=== PATIENT | male | born 1990 | race Caucasian/White ===

== ENCOUNTER → 2017-11-01 16:41 | Outpatient (CLI) | payer MEDICAID, SELFPAY | PROVIDERS: Visit Provider Obstetrics & Gynecology ==

== ENCOUNTER 2020-04-01 09:33 | Emergency (ER) | payer MEDICAID, SELFPAY ==
[2020-04-01 09:44] VITALS: BP 116/70; PULSE 63; RESP 17; O2SAT 98
--- NOTE | 2020-04-01 09:55 | HMH.EDUTC ---
[facility] Clinical Impression: Acute bronchitis Qualifiers: Bronchitis organism: unspecified organism Qualified Code(s): J20.9 - Acute bronchitis, unspecified Sinusitis Qualifiers: Sinusitis location: unspecified location Chronicity: acute Recurrence: non-recurrent Qualified Code(s): J01.90 - Acute sinusitis, unspecified Disposition: Home, Self-Care Condition on Discharge: Good Instructions: Sinusitis, DI for Sinusitis Additional Instructions: Drink plenty of fluids. Take tylenol or ibuprofen for pain or fever. Take the medications as directed. Follow up with your regular doctor. GO TO THE ER FOR ANY WORSENING SYMPTOMS Prescriptions: Brompheniramine/Pseudoephed/Dm [Bromfed Dm Cough Syrup] 5 ml PO Q6HP PRN #240 syrup PRN Reason: Cough Transmission Status: Received by [facility] # Azithromycin [Z-Curtis 250mg Tab*] 250 mg PO UD DOSE PK #6 tab Transmission Status: Received by [facility] # Referrals: Ramila Sen APRN [Primary Care Provider] - Time of Disposition: 09:57 Medical Decision Making - Medical Records Medical records reviewed: No: I reviewed the patient's medical records. - Gaston Inquiry Pt receiving controlled substance: No Vital Signs: 04/01/20 09:44 04/01/20 10:12 Temperature 98.0 F Temperature Source Oral Pulse Rate 63 Pulse Rate [Radial] 63 Respiratory Rate 17 17 Blood Pressure 116/70 Blood Pressure [Right Arm] 116/70 Blood Pressure Mean [Right Arm] 85 Blood Pressure Source Automatic Cuff Blood Pressure Source [Right Arm] Automatic Cuff Blood Pressure Position Sitting Blood Pressure Position [Right Arm] Sitting 02 Sat by Pulse Oximetry 98 Oxygen Delivery Method Room Air Room Air [facility] [place] [place] - General Stated complaint: possible bronchitis Time Seen by Provider: 04/01/20 09:45 Mode of Arrival: Ambulatory Source of Information: Patient Limitations: No Limitations Description of Symptoms (Recalled from Triage Doc. by RN): possible bronchitis HEENT Symptoms (Recalled from RN notes): Yes Resp Symptoms (Recalled from RN notes): No Skin Symptoms (Recalled from RN notes): No MS Symptoms (Recalled from RN notes): No Functional Status (Recalled from RN notes): wnl - History of Present Illness Provider Complaint: He c/o having sinus pressure, head ache, sinus drainage and cough for the past 2 days. He denies any exposure to COVID-19. - Related Data Previous Rx's Medication Instructions Recorded Meloxicam [Mobic 7.5mg Tab] 7.5 mg PO DAILY #14 tab 07/31/18 prednisone 20 mg tablet 20 mg PO BID 5 Days #10 tab 08/02/18 Azithromycin [Z-Curtis 250mg Tab*] 250 mg PO UD DOSE PK #6 tab 04/01/20 Brompheniramine/Pseudoephed/Dm 5 ml PO Q6HP PRN #240 syrup 04/01/20 [Bromfed Dm Cough Syrup] Allergies Allergy/AdvReac Type Severity Reaction Status Date / Time No Known Allergies Allergy Verified 08/02/18 13:05 - Worker's Comp Is this a Worker's Comp case?: No [facility] History - Hepatitis A Screen Drug use history?: No High risk sexual behaviors?: No History of sexually transmitted infection?: No Currently employed?: No Childcare worker?: No Do you have indoor plumbing?: Yes Do you have electricity?: Yes Attestation statement:: This patient has been screened for Hepatitis A risk factors. I have reviewed the patient's past medical history: Yes Medical History: Denies:: Cancer, Diabetes Mellitus Type 1, Diabetes Mellitus Type 2, MRSA Other Surgeries: Yes: No Previous Surgery Amputation: No Fractures: No - Social History Smoking Status: Current some day smoker Tobacco Type: cigarettes Alcohol Intake: never Alcohol Intake Frequency:: a few times a month Substance Use Type: marijuana Occupational Status: other Housing: house ROS Obtained: Yes All systems reviewed & no additional complaints - Constitutional Constitutional: Reports chills, Denies fever(s), Reports poor appetite, Reports malaise - Eyes Eyes: De
[2020-04-01 10:12] VITALS: BP 116/70; PULSE 63; RESP 17; TEMP 36.7; O2SAT 98
== END 2020-04-01 10:13 | disposition home or self-care (01) ==
PROVIDERS: Emergency Provider Nurse Practitioner Family; PCP Nurse Practitioner Family
DX: J20.9 Acute bronchitis, unspecified (principal); J01.90 Acute sinusitis, unspecified; F17.210 Nicotine dependence, cigarettes, uncomplicated
CPT/HCPCS: 99201

== ENCOUNTER 2022-06-10 14:44 | Emergency (ER) | payer MEDICAID, SELFPAY ==
[2022-06-10 15:45] VITALS: BMI 20.6
--- NOTE | 2022-06-10 15:47 | CT_ITS ---
PROCEDURE INFORMATION: Exam: CT Abdomen And Pelvis With Contrast Exam date and time: 06/10/2022 3:53 PM Age: 32 years old Clinical indication: Abdominal pain; Localized; Right lower quadrant (rlq); Patient HX: Rlq pain since Wednesday, worsened today. Nkt, 0 other complaints; Additional info: R lower quad pain TECHNIQUE: Imaging protocol: Computed tomography of the abdomen and pelvis with contrast. Radiation optimization: All CT scans at this facility use at least one of these dose optimization techniques: automated exposure control; mA and/or kV adjustment per patient size (includes targeted exams where dose is matched to clinical indication); or iterative reconstruction. Contrast material: ISOVUE; Contrast volume: 70 ml; Contrast route: IV; COMPARISON: No relevant prior studies available. FINDINGS: Lungs: Lung bases are clear. Liver: Normal. No mass. Gallbladder and bile ducts: Normal. No calcified stones. No ductal dilation. Pancreas: Unremarkable. Main pancreatic duct is not significantly dilated. Spleen: Normal. No splenomegaly. Adrenal glands: Normal. No mass. Kidneys and ureters: Kidneys are unremarkable. No calculi or hydronephrosis detected. Stomach and bowel: Unremarkable. No obstruction. No mucosal thickening. Appendix: Appendix is adequately seen and unremarkable. No evidence of acute appendicitis. Intraperitoneal space: Unremarkable. No free air. No significant fluid collection. Vasculature: Unremarkable. No abdominal aortic aneurysm. Lymph nodes: Unremarkable. No enlarged lymph nodes. Urinary bladder: Unremarkable as visualized. Reproductive: Unremarkable as visualized. Bones/joints: Unremarkable. No acute fracture. Soft tissues: Unremarkable. IMPRESSION: No acute findings within the abdomen or pelvis.
[2022-06-10 15:49] VITALS: BP 151/87; PULSE 59; RESP 20; TEMP 36.8; O2SAT 98; BMI 20.6
[2022-06-10 16:00] LABS: Basophils # 0.1 K/mm3 (0-0.2); Basophils % 0.9 % (0.1-2.0); Eosinophils # 0.3 K/mm3 (0.0-0.4); Eosinophils % 4.4 % (0.1-12.0); Hematocrit 51.6 % (42.0-52.0); Hemoglobin 16.9 g/dL (14.1-18.0); Lymphocytes % 25.3 % (10-50); Mean Corpuscular HGB Conc 32.8 g/dL (31.8-35.4); Mean Corpuscular Hemoglobin 31.1 pg (27.0-31.2); Mean Corpuscular Volume 94.7 fl (80-94); Mean Platelet Volume 9.1 fl (7.4-10.4); Monocytes # 0.3 K/mm3 (0.1-1.0); Monocytes % 3.9 % (1.7-9.3); Neutrophils # 5.1 K/mm3 (1.8-7.8); Neutrophils % 65.5 % (37.0-80.0); Platelet Count 283 K/mm3 (142-424); Red Blood Count 5.45 M/mm3 (4.60-6.20); Red Cell Distribution Width 12.5 % (11.5-17.5); White Blood Count 7.8 K/mm3 (4.8-10.8)
[2022-06-10 16:12] LABS: Microscopic, Urine URINE MICROSCOPIC (MICROSCOPIC)
[2022-06-10 16:15] LABS: Alanine Aminotransferase 22 U/L (12-78); Albumin/Globulin Ratio 1.7 (1.1-1.8); Alkaline Phosphatase 78 U/L (38-126); Anion Gap 9.7 mEq/L (5-15); Aspartate Amino Transferase 27 U/L (17-59); Bilirubin,Total 0.5 mg/dl (0.2-1.3); Blood Urea Nitrogen 6 mg/dl (9-20); Calcium 10.2 mg/dl (8.4-10.2); Carbon Dioxide 29 mmol/L (22.0-30.0); Chloride 104 mmol/L (98-107); Creatinine Clearance Estimated 125 mL/min (50-200); Estimated Glomerular Filt Rate 98 ml/min (>60); GFR (African American) 118 ML/MIN (>60); Globulin 2.9 g/dL (1.3-3.2); Glucose 99 mg/dl (74-100); Lipase 67 U/L (23-300); Potassium 3.7 mmoL/L (3.5-5.1); Sodium 139 mmol/L (136-145); Total Protein,Serum 7.9 g/dl (6.3-8.2)
[2022-06-10 16:24] LABS: Appearance,Urine CLEAR (Clear); Bilirubin,Urine Negative (Negative); Blood, Urine Negative (Negative); Color,Urine YELLOW (Yellow); Glucose,Urine (UA) Negative (Negative); Ketones,Urine Negative (Negative); Leukocyte Esterase,Urine Negative (Negative); Nitrate,Urine Negative (Negative); Protein,Urine Negative (Negative); Urobilinogen,Urine 0.2 EU/dl (0.2)
[2022-06-10 16:30] VITALS: BP 106/50; PULSE 62; O2SAT 99
[2022-06-10 17:01] VITALS: BP 117/65; PULSE 54; O2SAT 99
[2022-06-10 17:30] VITALS: BP 124/65; PULSE 52; O2SAT 95
--- NOTE | 2022-06-10 17:30 | HMH.EDGENADL ---
Discharge Plan Disposition Patient Disposition: Home, Self-Care Condition: Good Chief Complaint: PAIN Prescriptions Prescriptions: No Action prednisone 20 mg tablet 20 mg PO BID 5 Days Qty: 10 0RF meloxicam 7.5 MG tablet 7.5 mg PO DAILY Qty: 14 0RF azithromycin 250 MG tablet 250 mg PO UD DOSE PK Qty: 6 0RF Rx Instructions: Take two (2) tablets today, then one (1) tablet days #2 thru #5 uxcsedbgskjeftq-prwrphzni-TX 118 ML syrup 5 ml PO Q6HP PRN (Reason: Cough) Qty: 240 0RF Referrals Follow up/Referrals: Ramila Sen APRN [Primary Care Provider] - See instructions Activity Restrictions/Add. Instructions Additional Instructions/Restrictions: Ibuprofen as needed for pain. Additional instructions for ABDOMINAL PAIN: See your physician as soon as possible for further evaluation. Return immediately if worsening abdominal pain, vomiting, shortness of breath, fever, vomiting of blood or abdominal distention. Clinical Impressions Clinical Impression: Abdominal pain, right lower quadrant Instructions Patient Instructions: DI for Abdominal Pain-Adult Discharge ED Provider: Antione Antonio General Adult HPI General Chief complaint: PAIN Stated complaint: RT abd pain, nausea Time Seen by Provider: 06/10/22 17:24 Mode of Arrival: Ambulatory Source of Information: Patient Limitations: No Limitations Description of Symptoms (Recalled from ER Triage Doc. by RN): pt to ed c/o RLQ pain x2 days, urinary frequency and burning with urination. pt denies visible blood in urine. History of Present Illness HPI narrative: Complains of right lower quadrant pain for the past couple of days. Describes it as a numbing sensation but says that it feels like it is deep inside. Sometimes he has to change positions when the pain gets worse. He says sometimes it seems to go around to his lower back as well. Denies vomiting, diarrhea, fever, urinary symptoms. States he has had a similar pain once over a year ago and it did seem to go away on its own. He has been doing some increased physical activity, moving recently. Related Data Previous Rx's Medication Instructions Recorded meloxicam 7.5 mg tablet 7.5 mg PO DAILY #14 tabs 07/31/18 prednisone 20 mg tablet 20 mg PO BID 5 days #10 tabs 08/02/18 azithromycin 250 mg tablet 250 mg PO UD DOSE PK #6 tabs 04/01/20 nydfvhzkrwfinbq-qljageqhmtvuibx-QU 5 ml PO Q6HP PRN Cough ##240 04/01/20 2 mg-30 mg-10 mg/5 mL oral syrup Allergies Allergy/AdvReac Type Severity Reaction Status Date / Time No Known Allergies Allergy Verified 08/02/18 13:05 [facility] Disclaimer: The information contained in this section may have been updated after the patient was seen, as this information can be updated by other users. Social History Smoking Status: Never smoker second hand exposure: No alcohol intake: never substance use type: marijuana current occupational status: other Travel in the last 8 weeks: None housing: house ROS Obtained: Yes Systems reviewed as appropriate & no additional complaints except as documented Constitutional Constitutional: Denies fever(s) Cardiovascular Cardiovascular: Denies chest pain Gastrointestinal Gastrointestingal: Reports abdominal pain; Denies constipation, diarrhea, nausea or vomiting Genitourinary Male Genitourinary: Denies difficulty urinating Musculoskeletal Musculoskeletal: Reports back pain Physical Exam General General appearance: alert and in no apparent distress Head Head exam: atraumatic and normocephalic Eye Eye exam: Present normal appearance and EOMI ENT ENT exam: Present mucous membranes moist Neck Neck exam: Present normal inspection and trachea midline Chest Chest inspection: Present normal inspection and symmetric chest wall rise Respiratory Respiratory exam: Absent respiratory distress Cardiovascular Cardiovascular exam: Present regular rate, normal rhythm and normal heart sound
[2022-06-10 17:53] VITALS: BP 124/65; PULSE 65; RESP 20; TEMP 36.8; O2SAT 97
== END 2022-06-10 17:56 | disposition home or self-care (01) ==
PROVIDERS: Emergency Provider Emergency Medicine; PCP Nurse Practitioner Family
DX: R10.31 Right lower quadrant pain (principal)
CPT/HCPCS: 74177; 80053; 81001; 83690; 85025; 96374; 99284; Q9967

== ENCOUNTER 2022-12-17 12:43 | Emergency (ER) | payer MEDICAID, SELFPAY ==
[2022-12-17 12:43] VITALS: BP 116/83; PULSE 58; RESP 18; TEMP 36.6; O2SAT 99
--- NOTE | 2022-12-17 12:53 | EXP.UTC ---
Discharge Plan Disposition Patient Disposition: Home, Self-Care Condition: Good Prescriptions Prescriptions: New azithromycin [Zithromax] 250 mg tablet 250 mg PO UD DOSE PK Qty: 6 0RF Rx Instructions: Take two (2) tablets today, then one (1) tablet days #2 thru #5 woouecrntwpsswd-hsfvcdxhm-EU [Bromfed DM] 2-30-10 mg/5 mL Syrup 5 ml PO Q6H PRN (Reason: Cough) Qty: 240 0RF No Action prednisone 20 mg tablet 20 mg PO BID 5 Days Qty: 10 0RF meloxicam 7.5 MG tablet 7.5 mg PO DAILY Qty: 14 0RF azithromycin 250 MG tablet 250 mg PO UD DOSE PK Qty: 6 0RF Rx Instructions: Take two (2) tablets today, then one (1) tablet days #2 thru #5 eajjytftzspuhez-razqsqbds-NS 118 ML syrup 5 ml PO Q6HP PRN (Reason: Cough) Qty: 240 0RF Referrals Follow up/Referrals: Provider,Referral, MD [Primary Care Provider] - See instructions Activity Restrictions/Add. Instructions Additional Instructions/Restrictions: Drink plenty of fluids. Take tylenol or ibuprofen for pain or fever. Take the medications as directed. Follow up with your regular doctor. GO TO THE ER FOR ANY WORSENING SYMPTOMS Clinical Impressions Clinical Impression: Otitis media Instructions Patient Instructions: Middle Ear Infection Discharge ED Provider: Evans Watt [facility] [place] HPI General Stated complaint: Lightheaded, RT ear pain Time Seen by Provider: 12/17/22 12:53 History of Present Illness Provider Complaint: He states that for the past 2 days he has had left ear pain, dizziness and sinus congestion. Related Data Previous Rx's Medication Instructions Recorded meloxicam 7.5 mg tablet 7.5 mg PO DAILY #14 tabs 07/31/18 prednisone 20 mg tablet 20 mg PO BID 5 days #10 tabs 08/02/18 azithromycin 250 mg tablet 250 mg PO UD DOSE PK #6 tabs 04/01/20 pbhpzfuwfmbpfur-esgkvdyvdztcoea-GU 5 ml PO Q6HP PRN Cough ##240 04/01/20 2 mg-30 mg-10 mg/5 mL oral syrup azithromycin 250 mg tablet 250 mg PO UD DOSE PK #6 tabs 12/17/22 (Zithromax) jouqauplxiilrhb-gsumuppagbgfoks-DJ 5 ml PO Q6H PRN Cough #240 mL 12/17/22 2 mg-30 mg-10 mg/5 mL oral syrup (Bromfed DM) Allergies Allergy/AdvReac Type Severity Reaction Status Date / Time No Known Allergies Allergy Verified 08/02/18 13:05 [facility] Disclaimer: The information contained in this section may have been updated after the patient was seen, as this information can be updated by other users. Social History Smoking Status: Never smoker second hand exposure: No alcohol intake: never substance use type: marijuana current occupational status: other Travel in the last 8 weeks: None housing: house ROS Obtained: Yes All systems reviewed & no additional complaints except as documented Constitutional Constitutional: Denies chills, Reports fever(s) and Reports poor appetite Eyes Eyes: Denies eye discharge ENT Ears, Nose, Mouth, and Throat: Denies ear discharge, Reports otalgia, Denies hearing loss, Denies sinus pain and Reports sore throat Cardiovascular Cardiovascular: Denies chest pain and Denies dyspnea Respiratory Respiratory: Denies chest congestion, Reports cough and Denies dyspnea Gastrointestinal Gastrointestingal: Denies abdominal pain, diarrhea, nausea or vomiting Musculoskeletal Musculoskeletal: Denies arthralgias Integumentary/Breasts Skin/Breast: Denies rash Physical Exam General General appearance: alert and in no apparent distress Head Head exam: atraumatic, normocephalic and normal inspection Eye Eye exam: Present normal appearance; Absent PERRL or EOMI ENT ENT exam: Present mucous membranes moist and normal external ear exam Expanded ENT Exam TM/Canal exam: Bilateral TM: erythema, bulging and effusion Nose exam: Absent sinus tenderness Nasal speculum exam: Bilateral: normal Mouth exam: Present normal external inspection and other; Absent drooling Teeth exam: Present kai
[2022-12-17 13:22] VITALS: BP 116/83; PULSE 58; RESP 18; TEMP 36.6; O2SAT 99
== END 2022-12-17 13:22 | disposition home or self-care (01) ==
PROVIDERS: Emergency Provider Nurse Practitioner Family
DX: H66.93 Otitis media, unspecified, bilateral (principal)
CPT/HCPCS: 99212; 99214; G0463

== ENCOUNTER 2023-01-11 16:41 | Emergency (ER) | payer MEDICAID, SELFPAY ==
[2023-01-11 16:44] VITALS: BP 132/75; PULSE 72; RESP 17; TEMP 36.8; O2SAT 99; BMI 20.6
[2023-01-11 17:00] VITALS: BP 125/68; PULSE 76; RESP 18; O2SAT 100
[2023-01-11 17:30] VITALS: BP 132/75; PULSE 77; RESP 18; O2SAT 99
--- NOTE | 2023-01-11 17:44 | HMH.EDGENADL ---
Discharge Plan Disposition Patient Disposition: Home, Self-Care Prescriptions Prescriptions: No Action No Known Home Medications Referrals Follow up/Referrals: Provider,Referral, MD [Primary Care Provider] - See instructions Activity Restrictions/Add. Instructions Additional Instructions/Restrictions: You have no emergent medical condition or evidence of any type of acute infectious process. Please take Flonase and Sudafed supportively for your symptoms as discussed and return with any high fevers over 101 degrees and any other concerns. Clinical Impressions Clinical Impression: Sinus pressure Discharge ED Provider: Malcolm Loza General Adult HPI General Chief complaint: Ear Stated complaint: AO 2 weeks, lightheaded, dizzy Time Seen by Provider: 01/11/23 17:36 Mode of Arrival: Ambulatory Source of Information: Patient Limitations: No Limitations Description of Symptoms (Recalled from ER Triage Doc. by RN): 32 M presents with continued feelings of being lightheaded and pressure in his head. He was evaluated by our [facility] 2 weeks ago when this originally started. He was diagnosed with vertigo and an inner ear infection. He finished all of his oral abs, but reports this all ramped back up after I was finished taking the medicine. Patient denies fever, chills, or pain in ears. History of Present Illness HPI narrative: Patient is a 32-year-old male here for evaluation of sinus pressure that he has been having for the last 2 weeks. States that he was sleeping in a hammock 2 weeks ago and fell and hit his head and woke up and had some vertigo dizziness type symptoms that day. Went to an urgent treatment clinic and was told he had an inner ear infection was given antibiotics and those symptoms have since resolved. States he still has some pressure in the maxillary area and as well as bilateral ears. Took some Sudafed prior to being evaluated today with some improvement in symptoms. No fevers or chills no significant facial pressure no purulent drainage. He had no bleeding coming from his ears no swelling or ecchymosis behind his ears. States he is very anxious about the symptoms he is currently feeling. Related Data Home Medications Medication Instructions Recorded Confirmed No Known Home Medications 01/11/23 01/11/23 Allergies Allergy/AdvReac Type Severity Reaction Status Date / Time No Known Allergies Allergy Verified 08/02/18 13:05 [facility] Disclaimer: The information contained in this section may have been updated after the patient was seen, as this information can be updated by other users. Social History Smoking Status: Current every day smoker tobacco type: cigarettes second hand exposure: No alcohol intake: never substance use type: marijuana current occupational status: other Travel in the last 8 weeks: None housing: house ROS Obtained: Yes All systems reviewed & no additional complaints except as documented Physical Exam General General appearance: alert ENT ENT exam: Present normal exam, normal oropharynx, TM's normal bilaterally, normal external ear exam and other (No chavez sign or raccoon eyes) Respiratory Respiratory exam: Present normal lung sounds bilaterally Cardiovascular Cardiovascular exam: Present regular rate Neurological Exam Neurological exam: Present alert and oriented X3 Medical Decision Making Gaston Inquiry Pt receiving controlled substance: No Vital Signs: 01/11/23 16:44 01/11/23 17:00 01/11/23 17:30 Temperature 98.2 F Temperature Source Oral Pulse Rate 76 77 Pulse Rate [Left] 72 Respiratory Rate 17 18 18 Blood Pressure 125/68 132/75 Blood Pressure [Right Arm] 132/75 Blood Pressure Mean 87 94 Blood Pressure Mean [Right Arm] 94 Blood Pressure Source [Right Arm] Automatic Cuff Blood Pressure Position [Right Arm] Sitting 02 Sat by Pulse Oximetry 99 100 99 O
[2023-01-11 17:47] VITALS: BP 132/75; PULSE 78; RESP 17; TEMP 36.8; O2SAT 9
== END 2023-01-11 17:49 | disposition home or self-care (01) ==
PROVIDERS: Emergency Provider Student in an Organized Health Care Education/Training Program
DX: J01.90 Acute sinusitis, unspecified (principal); R42 Dizziness and giddiness; F17.210 Nicotine dependence, cigarettes, uncomplicated
CPT/HCPCS: 99283

== ENCOUNTER 2023-01-14 12:45 | Emergency (ER) | payer MEDICAID, SELFPAY ==
[2023-01-14 12:46] VITALS: BP 127/83; PULSE 81; RESP 16; TEMP 36.6; O2SAT 99; BMI 20.6
[2023-01-14 13:04] LABS: Microscopic, Urine URINE MICROSCOPIC (MICROSCOPIC)
[2023-01-14 13:09] LABS: Appearance,Urine CLEAR (Clear); Bilirubin,Urine Negative (Negative); Blood, Urine Negative (Negative); Color,Urine YELLOW (Yellow); Glucose,Urine (UA) Negative (Negative); Ketones,Urine Negative (Negative); Leukocyte Esterase,Urine Negative (Negative); Nitrate,Urine Negative (Negative); PH,Urine 5.5 (5.0-8.5); Protein,Urine Negative (Negative); Specific Gravity, Urine <= 1.005 (1.005-1.030); Urobilinogen,Urine 0.2 EU/dl (0.2)
--- NOTE | 2023-01-14 13:14 | EXP.UTC ---
Discharge Plan Disposition Patient Disposition: Home, Self-Care Condition: Good Prescriptions Prescriptions: New doxycycline hyclate [doxycycline hyclate] 100 mg capsule 100 mg PO Q12 10 Days Qty: 20 0RF Referrals Follow up/Referrals: Provider,Referral, [Primary Care Provider] - See instructions Activity Restrictions/Add. Instructions Additional Instructions/Restrictions: Drink plenty of fluids. Take tylenol or ibuprofen for pain or fever. Take the medications as directed. Follow up with your regular doctor. GO TO THE ER FOR ANY WORSENING SYMPTOMS Clinical Impressions Clinical Impression: UTI (urinary tract infection) Instructions Patient Instructions: DI for Urinary Tract Infection (UTI), Doxycycline Discharge ED Provider: Evans Watt [facility] General Stated complaint: Burning w/ urination Mode of Arrival: Ambulatory Source of Information: Patient Limitations: No Limitations Time Seen by Provider: 01/14/23 13:14 Description of Symptoms (Recalled from Triage Doc. by RN): Patient reports burning when urinating, frequent urination and pressure in his testicles for a couple of days. HEENT Symptoms (Recalled from RN notes): No Resp Symptoms (Recalled from RN notes): No Skin Symptoms (Recalled from RN notes): No MS Symptoms (Recalled from RN notes): No Functional Status (Recalled from RN notes): wnl History of Present Illness Provider Complaint: He states that for the past 2 days he has had dysuria and urinary frequency. He denies fever but has felt like he has had chilling at times, He has had some mild low back pain also. He denies any known std Related Data Previous Rx's Medication Instructions Recorded doxycycline hyclate 100 mg capsule 100 mg PO Q12 10 days #20 caps 01/14/23 Allergies Allergy/AdvReac Type Severity Reaction Status Date / Time No Known Allergies Allergy Verified 08/02/18 13:05 Worker's Comp Is this a Worker's Comp case?: No [facility] Disclaimer: The information contained in this section may have been updated after the patient was seen, as this information can be updated by other users. Social History Smoking Status: Current every day smoker tobacco type: cigarettes second hand exposure: No alcohol intake: never substance use type: marijuana current occupational status: other Travel in the last 8 weeks: None housing: house ROS Obtained: Yes All systems reviewed & no additional complaints except as documented Constitutional Constitutional: Denies chills and Denies fever(s) Eyes Eyes: Denies eye discharge ENT Ears, Nose, Mouth, and Throat: Denies dizziness, Denies otalgia and Denies sore throat Cardiovascular Cardiovascular: Denies chest pain Respiratory Respiratory: Denies shortness of breath, Denies chest congestion, Denies cough, Denies stridor and Denies wheezing Gastrointestinal Gastrointestingal: Denies nausea or vomiting Genitourinary Male Genitourinary: Reports as per HPI Musculoskeletal Musculoskeletal: Reports system reviewed and no additional complaints, except as documented and Denies arthralgias Integumentary/Breasts Skin/Breast: Denies rash Neurologic Neurologic: Denies dizziness and Denies paresthesias Allergic/Immunologic Allergic/Immunologic: Denies wheezing Physical Exam General General appearance: alert and in no apparent distress Head Head exam: atraumatic, normocephalic and normal inspection Eye Eye exam: Present normal appearance, PERRL and EOMI ENT ENT exam: Present normal exam, normal oropharynx, mucous membranes moist, TM's normal bilaterally and normal external ear exam Neck Neck exam: Present normal inspection, full ROM and trachea midline; Absent meningismus or lymphadenopathy Chest Chest inspection: Present normal inspection and symmetric chest wall rise; Absent tenderness Respiratory Respiratory exam: Present normal lung sounds bilaterally; Absent
[2023-01-14 13:17] LABS: Bacteria,Urine Trace /lpf; Squamous Epithelial Cell,Urine Occasional #/hpf (0-5)
[2023-01-14 13:57] VITALS: BP 127/83; PULSE 81; RESP 16; TEMP 36.6; O2SAT 99
[2023-01-18 22:35] LABS: Neisseria gonorrhoeae, NAA Negative (Negative)
== END 2023-01-14 13:59 | disposition home or self-care (01) ==
PROVIDERS: Emergency Provider Nurse Practitioner Family
DX: N39.0 Urinary tract infection, site not specified (principal); M54.59 Other low back pain; F17.210 Nicotine dependence, cigarettes, uncomplicated
CPT/HCPCS: 81001; 87086; 87491; 87591; 99212; 99214; G0463

== ENCOUNTER 2023-05-09 17:51 | Emergency (ER) | payer MEDICAID, SELFPAY ==
--- NOTE | 2023-05-09 17:45 | ECG_ITS ---
APPROVED REPORT Exam: Resting ECG HR:75 bpm ECG Measurements Heart Rate 75 AXES [place] 155 P 71 QRSd 100 QRS 91 QT 372 T 68 QTc 402 Conclusion SINUS RHYTHM BORDERLINE RIGHT AXIS DEVIATION [QRS AXIS > 90] BORDERLINE ECG UNCONFIRMED REPORT Electronically signed by : Guillermo Fernandez MD 05/10/2023 20:24:06
[2023-05-09 17:57] VITALS: BP 126/79; PULSE 83; RESP 16; TEMP 37.1; O2SAT 98; BMI 20.6
[2023-05-09 18:00] VITALS: BP 118/77; PULSE 72; RESP 15; O2SAT 98
--- NOTE | 2023-05-09 18:02 | XR_ITS ---
PROCEDURE INFORMATION: Exam: XR Chest Exam date and time: 05/09/2023 6:26 PM Age: 32 years old Clinical indication: Pain; Chest pressure; Additional info: Chest pain. Smoker (unknown for how long) TECHNIQUE: Imaging protocol: Radiologic exam of the chest. Views: 1 view. COMPARISON: CT ABDOMEN PELVIS W CON 06/10/2022 3:53 PM FINDINGS: Lungs: Normal. Pleural spaces: Normal No pleural effusion. No pneumothorax. Heart/Mediastinum: Normal. No cardiomegaly. Bones/joints: Unremarkable. IMPRESSION: No acute findings.
[2023-05-09 18:08] LABS: Basophils # 0.1 K/mm3 (0-0.2); Basophils % 0.8 % (0.1-2.0); Eosinophils # 0.4 K/mm3 (0.0-0.4); Eosinophils % 4.6 % (0.1-12.0); Hematocrit 48.3 % (42.0-52.0); Hemoglobin 16.7 g/dL (14.1-18.0); Lymphocytes # 2.1 K/mm3 (0.7-4.5); Lymphocytes % 27.4 % (10-50); Mean Corpuscular HGB Conc 34.5 g/dL (31.8-35.4); Mean Corpuscular Hemoglobin 32.2 pg (27.0-31.2); Mean Corpuscular Volume 93.1 fl (80-94); Mean Platelet Volume 8.8 fl (7.4-10.4); Monocytes # 0.3 K/mm3 (0.1-1.0); Monocytes % 4.3 % (1.7-9.3); Neutrophils # 4.9 K/mm3 (1.8-7.8); Neutrophils % 62.9 % (37.0-80.0); Platelet Count 203 K/mm3 (142-424); Red Blood Count 5.19 M/mm3 (4.60-6.20); Red Cell Distribution Width 13.1 % (11.5-17.5); White Blood Count 7.8 K/mm3 (4.8-10.8)
[2023-05-09 18:09] LABS: Chloride 104 mmol/L (98-107)
[2023-05-09 18:10] LABS: Potassium 3.6 mmoL/L (3.5-5.1); Sodium 143 mmol/L (136-145)
[2023-05-09 18:12] LABS: Blood Urea Nitrogen 8 mg/dl (9-20); Creatinine Clearance Estimated 140 mL/min (50-200); Estimated Glomerular Filt Rate 112 ml/min (>60); GFR (African American) 136 ML/MIN (>60)
[2023-05-09 18:13] LABS: Anion Gap 12.6 mEq/L (5-15); Calcium 9.4 mg/dl (8.4-10.2); Carbon Dioxide 30 mmol/L (22.0-30.0); Glucose 96 mg/dl (74-100)
[2023-05-09 18:29] LABS: Troponin I < 0.01 ng/ml (0.00-0.034)
[2023-05-09 18:30] VITALS: BP 114/75; PULSE 72; RESP 17; O2SAT 98
--- NOTE | 2023-05-09 18:36 | HMH.EDGENADL ---
Discharge Plan Disposition Patient Disposition: Home, Self-Care Chief Complaint: Chest Pain Referrals Follow up/Referrals: Provider,Referral, [Primary Care Provider] - See instructions Activity Restrictions/Add. Instructions Additional Instructions/Restrictions: At this time it was felt you are safe to be discharged home. If new or worsening symptoms please do not hesitate to return the emergency department. If symptoms persist please follow-up with your family doctor as you are able. Clinical Impressions Clinical Impression: Chest pain Discharge ED Provider: Chirag Torres General Adult HPI General Chief complaint: Chest Pain Stated complaint: cp Time Seen by Provider: 05/09/23 18:15 Mode of Arrival: Ambulatory Source of Information: Patient Limitations: No Limitations Description of Symptoms (Recalled from ER Triage Doc. by RN): 32 yo M presents to ED with c/o chest pain that began around noon today. pt also reports a lump on his left leg that has been there for over a year. History of Present Illness HPI narrative: Patient is a 32-year-old male with no chronic past medical history presents emergency department for evaluation of chest pain and a lump in his leg. With aspect of chest pain. Onset was acute, around noon. Substernal, does not radiate. With respect to the bump in his leg on his left lateral distal leg he feels as if when he bends over that there is a marshmallow that emerges over his distal lateral calf has been concerning to him. No other acute complaints at this time. Related Data Allergies Allergy/AdvReac Type Severity Reaction Status Date / Time No Known Allergies Allergy Verified 02/18/23 10:03 [facility] Disclaimer: The information contained in this section may have been updated after the patient was seen, as this information can be updated by other users. Medical History ADHD Anxiety Social History (Updated 02/18/23 @ 10:04 by RICK Wright) Smoking Status: Current every day smoker tobacco type: cigarettes second hand exposure: No alcohol intake: never substance use type: denies use and marijuana current occupational status: other Travel in the last 8 weeks: None housing: house ROS Obtained: Yes Systems reviewed as appropriate & no additional complaints except as documented Physical Exam General General appearance: alert and in no apparent distress Head Head exam: atraumatic and normocephalic Eye Eye exam: Present PERRL and EOMI ENT ENT exam: Present mucous membranes moist Neck Neck exam: Present normal inspection Chest Chest inspection: Present normal inspection and symmetric chest wall rise Respiratory Respiratory exam: Present normal lung sounds bilaterally; Absent respiratory distress Cardiovascular Cardiovascular exam: Present regular rate and normal rhythm Abdominal Exam Abdominal exam: Present soft; Absent tenderness Extremities Exam Extremities exam: Present normal inspection; Absent tenderness Neurological Exam Neurological exam: Present alert Psychiatric Psychiatric exam: Present normal affect Skin Skin exam: Present warm and dry Medical Decision Making Gaston Inquiry Pt receiving controlled substance: No Vital Signs: 05/09/23 17:57 05/09/23 18:41 05/09/23 18:00 Temperature 98.7 F Temperature Source Oral Pulse Rate 68 72 Pulse Rate [Left Radial] 83 Respiratory Rate 16 15 Blood Pressure 118/77 Blood Pressure [Right Arm] 126/79 Blood Pressure Mean 88 Blood Pressure Mean [Right Arm] 94 02 Sat by Pulse Oximetry 98 98 Oxygen Delivery Method Room Air Room Air 05/09/23 18:30 Temperature Temperature Source Pulse Rate 72 Pulse Rate [Left Radial] Respiratory Rate 17 Blood Pressure 114/75 Blood Pressure [Right Arm] Blood Pressure Mean 82 Blood Pressure Mean [Right Arm] 02 Sat by Pulse Oximetry 98 Oxygen Delivery Method Room Air
[2023-05-09 18:41] VITALS: PULSE 68
--- NOTE | 2023-05-09 19:33 | PC.NURSE ---
Rounded on pt, no new complaints at this time.
[2023-05-09 21:10] LABS: Troponin I < 0.01 ng/ml (0.00-0.034)
[2023-05-09 21:17] VITALS: BP 118/75; PULSE 60; RESP 18; TEMP 36.9
== END 2023-05-09 21:25 | disposition home or self-care (01) ==
PROVIDERS: Emergency Provider Emergency Medicine
DX: R07.9 Chest pain, unspecified (principal); F17.210 Nicotine dependence, cigarettes, uncomplicated; F90.9 Attention-deficit hyperactivity disorder, unspecified type
CPT/HCPCS: 71045; 80048; 84484; 85025; 93005; 99284

== ENCOUNTER 2024-06-07 11:08 | Emergency (ER) | payer MEDICAID, SELFPAY ==
[2024-06-07 11:10] VITALS: BP 123/78; PULSE 70; RESP 18; TEMP 36.6; O2SAT 99; BMI 20.6
--- NOTE | 2024-06-07 11:38 | HMH.EDGENADL ---
Discharge Plan Disposition Chief Complaint: PAIN Referrals Follow up/Referrals: Kevin Rodríguez APRN [Primary Care Provider] - See instructions Activity Restrictions/Add. Instructions Additional Instructions/Restrictions: Call your family doctor to establish care for this visit to the emergency department and schedule follow-up within 48 hours to ensure improvement. If you have any worsening of your condition or any other concerning signs or symptoms, return to the emergency department or your primary care doctor for further evaluation. Take Tylenol 1000 mg every 6 hours (4 times daily) and ibuprofen 400 mg every 6 hours (4 times daily) as needed with food and water to prevent GI upset and kidney damage. Clinical Impressions Clinical Impression: Acute pain of left shoulder Print Language Print Language: Malay Discharge ED Provider: Barrie Dodge General Adult HPI General Chief complaint: PAIN Stated complaint: numbness L arm Time Seen by Provider: 06/07/24 11:21 Mode of Arrival: Ambulatory Source of Information: Patient Limitations: No Limitations Description of Symptoms (Recalled from ER Triage Doc. by RN): Reports getting a tdap on the and now his shoulder is sore and hurts to move. History of Present Illness HPI narrative: Please note that above description of symptoms, in this electronic medical record under categorization of recalled from ER triage doctor by RN are reflective of an initial nursing assessment, however, is not reflective of my full history and physical exam that was personally taken and clarified. Consequentially, this preceding description of symptoms, which may include the patient's categorized chief complaint in the EMR, do not reflect my personal clinical impression, and the ultimate description of history of present illness and patient stated complaints should be deferred to this section of the note. Unless stated otherwise or congruent with this section of the note, additional signs, symptoms, or incongruence should be interpreted as inaccurate with my clinical impression. Related Data Allergies Allergy/AdvReac Type Severity Reaction Status Date / Time No Known Allergies Allergy Verified 02/18/23 10:03 [facility] Disclaimer: The information contained in this section may have been updated after the patient was seen, as this information can be updated by other users. Medical History ADHD Anxiety Social History (Updated 02/18/23 @ 10:04 by RICK Wright) Smoking Status: Current every day smoker tobacco type: cigarettes second hand exposure: No alcohol intake: never substance use type: denies use and marijuana current occupational status: other housing: house Other Medical History Have you received the Flu Vaccine for this season: No Have you received the Pneumonia Vaccine: No ROS Obtained: Yes All systems reviewed & no additional complaints except as documented Physical Exam General General appearance: alert and anxious Head Head exam: atraumatic and normocephalic Eye Eye exam: Present normal appearance, PERRL and EOMI Neck Neck exam: Present normal inspection, full ROM and trachea midline Respiratory Respiratory exam: Absent respiratory distress, wheezes, stridor, accessory muscle use or prolonged expiratory phase Cardiovascular Cardiovascular exam: Present other (Pulses equal symmetric in upper and lower extremities) Abdominal Exam Abdominal exam: Present soft; Absent distention, tenderness or pulsatile mass Extremities Exam Extremities exam: Present tenderness (The left deltoid); Absent edema Neurological Exam Neurological exam: Present alert, oriented X3 and CN II-XII intact; Absent motor sensory deficit Skin Skin exam: Present warm and dry; Absent diaphoresis or erythema Medical Decision Making Medical Records Medical records reviewed: Yes I reviewed the patient's medical records. Screening: Per USPSTF and CDC recommendations, given the prevalence of disease in our region, it is our hospital?s policy to screen for HIV and viral Hepatitis for all patients aged 18 and over and those with ongoing risk factors. Gaston Inquiry Pt receiving controlled substance: No Gaston was queried for this patient: No Vital Signs: 06/07/24 11:10 06/07/24 14:09 Temperature 97.9 F Temperature Source Oral Pulse Rate 67 Pulse Rate [Radial] 70 Respiratory Rate 18 13 Blood Pressure 105/68 L Blood Pressure [Right Arm] 123/78 Blood Pressure Mean [Right Arm] 93 Blood Pressure Source [Right Arm] Automatic Cuff Blood Pressure Position [Right Arm] Sitting 02 Sat by Pulse Oximetry 99 97 Oxygen Delivery Method Room Air Room Air Lab Data Lab Results 06/07/24 12:00: WBC 9.8, RBC 5.33, Hgb 16.4, Hct 48.1, MCV 90.3, MCH 30.8, MCHC 34.2, RDW 13.2, Plt Count 218, MPV 8.8, Neut % (Auto) 75.5, Lymph % (Auto) 13.6, [place] % (Auto) 5.4, Eos % (Auto) 4.8, Baso % (Auto) 0.7, Neut # (Auto) 7.4, Lymph # (Auto) 1.3, [place] # (Auto) 0.5, Eos # (Auto) 0.5 H, Baso # (Auto) 0.1, Sodium 141, Potassium 4.2, Chloride 106, Carbon Dioxide 28, Anion Gap 11.2, BUN 9, Creatinine 0.70, Estimated Creat Clear 157, Estimated GFR 129, Est GFR ( Amer) 156, Glucose 94, Calcium 9.3, Total Bilirubin 0.5, AST 25, ALT 20, Alkaline Phosphatase 70, Total Creatine Kinase 76, Total Protein 7.4, Albumin 4.7, Globulin 2.7, Albumin/Globulin Ratio 1.7 06/07/24 12:00 06/07/24 12:00 Orders (Tests/Meds): ED MEDICATIONS Discontinued Medications Generic Name Dose Route Start Last Admin Trade Name Freq PRN Reason Stop Dose Admin Ketorolac Tromethamine 15 mg 06/07/24 11:32 06/07/24 11:59 Ketorolac 30mg/Ml Vial IV 06/07/24 11:33 15 mg ONCE ONE Administration ORDERS Category Date Time Status POCUS Point of Care (ER Only) Stat Exams 06/07/24 11:32 Completed Shoulder XR left minimum 2 views [XR shoulder LT min 2V Exams 06/07/24 11:40 Completed ] Stat CBC w/Auto Diff [Complete Blood Count Auto Diff] Stat Lab 06/07/24 12:00 Completed CK [Creatine Kinase] Stat Lab 06/07/24 12:00 Completed CMP [Comprehensive Metabolic Panel] Stat Lab 06/07/24 12:00 Completed HIV (1&2) Antibody Rapid Stat Lab 06/07/24 12:00 Received Hep C Ab with Reflex to RNA Stat Lab 06/07/24 12:00 Received Medical Decision Narrative: 34-year-old male no chronic medical history presenting with left-sided arm pain. Patient states that he was bitten a few days prior to this, received a tetanus shot on 06/02. Since that time, has developed tenderness in his left arm/shoulder. States that it is severe in intensity, does not radiate, made worse with motions of his left upper extremity. No fevers or chills, nausea or vomiting, spasming, no neck stiffness, jaw stiffness, vision changes, difficulty or pain with swallowing, left lower extremity symptoms, etc. Tried taking naproxen which helped modestly, but pain is still there. Came in for further evaluation. On arrival, well-appearing, but appears to be in pain. Left shoulder is tender to touch, not particularly swollen. No overlying redness, swelling, or signs of abnormality. No muscle stiffness, no evidence of spasticity or muscle tension. Generally just point tenderness over the site of injection. Range of motion intact, but painful. Neurovascular intact as well. Differential includes injection site reaction, broken needle tip, muscle spasm, cellulitis versus abscess, among others. Patient given Toradol. Independent interpretation of workup demonstrates negative labs, no needle tip or abnormality on XR, POCUS negative for soft tissue abnormality. Because patient at baseline without signs or symptoms of clinical decompensation, deemed appropriate for discharge. Results were relayed to patient who voiced understanding and were agreeable to outpatient management and follow up. I discussed my clinical impression with patient and answered all questions. At this time, the evidence for any other entities in the differential is insufficient to warrant any further testing or ED observation. This was explained as well. Advisory was given that persistent or worsening symptoms require further evaluation. I confirmed the understanding of this discussion. [employer] disclaimer Much of this encounter note is an electronic college football coach spoken language to printed text. Electronic college football coach of the spoken language may permit errors. Although I have reviewed the note, some errors may still exist. Procedures Limited Ultrasound Indication:: Limited soft tissue ultrasound Indication: Soft tissue swelling after vaccination Identified structures: Location: Left humerus/shoulder Findings: -Normal soft tissue ultrasound Impression: -Normal limited soft tissue ultrasound Images were saved to permanent archive The study was technically adequate Soft Tissue CPT Codes: CPT Neck: 34473-67 CPT Upper extremity: 91995-48 CPT Axilla: 95421-87 CPT Chest wall: 66103-64 CPT Breast: 86325-34-ND/LT (complete), 39888-88-HN/LT (limited), CPT Upper Back: 99268-64 CPT Lower Back: 95416-04 CPT Abdominal Wall: 08102-56 CPT Pelvic Wall: 40257-75 CPT Lower Extremity: 12322-20 CPT Other Soft Tissue: 18335-39 This study was performed by me, and I personally interpreted all images/videos. Based on my clinical judgement, these images were adequate and did not necessitate further imaging. Critical Care Critical Care Time Critical Care Time: No
--- NOTE | 2024-06-07 11:40 | XR_ITS ---
FINAL REPORT CLINICAL HISTORY: recent injection delt, rule out needle tip FINDINGS: Three views of the left shoulder were obtained. There is no fracture or dislocation. The joint space is preserved. Soft tissues are unremarkable. No foreign body is identified. IMPRESSION: No foreign body identified Reviewed, Interpreted and Dictated by Angelina Ann MD Transcribed by Jayda Oliveira Authenticated and [facility]
[2024-06-07] MEDS: KETOROLAC 30MG/ML VIAL 15 MG IV (11:59)
[2024-06-07 12:10] LABS: Basophils # 0.1 K/mm3 (0-0.2); Basophils % 0.7 % (0.1-2.0); Eosinophils # 0.5 K/mm3 (0.0-0.4); Eosinophils % 4.8 % (0.1-12.0); Hematocrit 48.1 % (42.0-52.0); Hemoglobin 16.4 g/dL (14.1-18.0); Lymphocytes # 1.3 K/mm3 (0.7-4.5); Lymphocytes % 13.6 % (10-50); Mean Corpuscular HGB Conc 34.2 g/dL (31.8-35.4); Mean Corpuscular Hemoglobin 30.8 pg (27.0-31.2); Mean Corpuscular Volume 90.3 fl (80-94); Mean Platelet Volume 8.8 fl (7.4-10.4); Monocytes # 0.5 K/mm3 (0.1-1.0); Monocytes % 5.4 % (1.7-9.3); Neutrophils # 7.4 K/mm3 (1.8-7.8); Neutrophils % 75.5 % (37.0-80.0); Platelet Count 218 K/mm3 (142-424); Red Blood Count 5.33 M/mm3 (4.60-6.20); Red Cell Distribution Width 13.2 % (11.5-17.5); White Blood Count 9.8 K/mm3 (4.8-10.8)
[2024-06-07 12:17] LABS: Alanine Aminotransferase 20 U/L (12-78); Albumin Level 4.7 g/dl (3.5-5.0); Albumin/Globulin Ratio 1.7 (1.1-1.8); Alkaline Phosphatase 70 U/L (38-126); Anion Gap 11.2 mEq/L (5-15); Aspartate Amino Transferase 25 U/L (17-59); Bilirubin,Total 0.5 mg/dl (0.2-1.3); Blood Urea Nitrogen 9 mg/dl (9-20); Calcium 9.3 mg/dl (8.4-10.2); Carbon Dioxide 28 mmol/L (22.0-30.0); Chloride 106 mmol/L (98-107); Creatine Kinase 76 U/L (55-170); Creatinine Clearance Estimated 157 mL/min (50-200); Estimated Glomerular Filt Rate 129 ml/min (>60); GFR (African American) 156 ML/MIN (>60); Globulin 2.7 g/dL (1.3-3.2); Glucose 94 mg/dl (74-100); Potassium 4.2 mmoL/L (3.5-5.1); Sodium 141 mmol/L (136-145); Total Protein,Serum 7.4 g/dl (6.3-8.2)
[2024-06-07 14:09] VITALS: BP 105/68; PULSE 67; RESP 13; O2SAT 97
[2024-06-07 14:25] VITALS: BP 105/68; PULSE 67; RESP 16; TEMP 36.7
[2024-06-07 16:14] LABS: HIV (1&2) Antibody Rapid NONREACTIVE (NONREACTIVE)
[2024-06-08 08:32] LABS: HCV Ab Non Reactive (Non Reactive)
== END 2024-06-07 14:25 | disposition home or self-care (01) ==
PROVIDERS: Emergency Provider Emergency Medicine; PCP Nurse Practitioner Family
DX: M25.512 Pain in left shoulder (principal); R20.2 Paresthesia of skin; M79.602 Pain in left arm
CPT/HCPCS: 73030; 80053; 82550; 85025; 86803; 87389; 96374; 99284; J1885